=== PATIENT | female | born 1975 | race African-American/Black ===

== ENCOUNTER 2016-10-13 08:34 | Emergency (ER) | payer OTHER ==
[~2016-10-13] VITALS: Ht 170.2 cm; Wt 73.3 kg
[~2016-10-13 08:34] MED LIST: AMITRIPTYLINE H50 MG PO; AMPHETAMINE SAL30 MG PO; CLONAZEPAM1 MG PO; METFORMIN HCL500 MG PO; MILK OF MAGN PO; QUETIAPINE FUM200 MG PO; SEROQUEL200 MG PO
[2016-10-13] MEDS ORDERED: MUCUS ER600 MG PO (10:11)
[2016-10-13] MEDS ORDERED: NAPROSYN500 MG PO (10:11)
[2016-10-13] MEDS ORDERED: AUGMENTIN875 MG PO (10:11)
[2016-10-13] MEDS ORDERED: PROVENTIL HFA6.7 GM IH (10:11)
[2016-10-13] MEDS ORDERED: ROBITUSSIN NIG118 ML PO (10:11)
[2016-10-13] MEDS ORDERED: TESSALON PERLE100 MG PO (10:11)
[2016-10-13 10:48] VITALS: BP 139/83
== END 2016-10-13 10:48 | disposition home or self-care (01) ==
LOC: EME 08:34
DX: H66.92 Otitis media, unspecified, left ear (principal); J20.8 Acute bronchitis due to other specified organisms; M79.1 Myalgia; J34.89 Other specified disorders of nose and nasal sinuses; R21 Rash and other nonspecific skin eruption; F17.200 Nicotine dependence, unspecified, uncomplicated; Z71.6 Tobacco abuse counseling
CPT/HCPCS: 71020; 94640; 99281; 99283

== ENCOUNTER 2017-02-23 15:10 | Emergency (ER) | payer OTHER ==
[~2017-02-23] VITALS: Ht 170.2 cm; Wt 72.1 kg
[~2017-02-23 15:10] MED LIST changes: +AUGMENTIN875 MG PO; +MUCUS ER600 MG PO; +NAPROSYN500 MG PO; +PROVENTIL HFA6.7 GM IH; +ROBITUSSIN NIG118 ML PO; +TESSALON PERLE100 MG PO
[2017-02-23] MEDS ORDERED: ULTRAM50 MG PO (17:24)
[2017-02-23] MEDS ORDERED: SKELAXIN800 MG PO (17:24)
[2017-02-23 17:48] VITALS: BP 138/85
== END 2017-02-23 17:54 | disposition home or self-care (01) ==
LOC: EME 15:10
DX: M54.42 Lumbago with sciatica, left side (principal); V49.50XA Passenger injured in collision with unspecified motor vehicles in traffic accident, initial encounter
CPT/HCPCS: 72070; 72100; 99281; 99283

== ENCOUNTER 2017-05-19 12:35 | Inpatient (IN) | payer OTHER ==
[~2017-05-19] VITALS: Ht 170.2 cm; Wt 70.0 kg
[~2017-05-19 12:35] MED LIST changes: +SKELAXIN800 MG PO; +ULTRAM50 MG PO
[2017-05-19] MEDS ORDERED: EFFEXOR XR75 MG PO (12:48)
[2017-05-19] MEDS ORDERED: TRAZODONE HCL100 MG PO (12:48)
[2017-05-19 12:55] LABS: HEMATOCRIT 43.4 % (36.0-46.0); MCHC 32.7 G/DL (30.0-36.0); MCV 79.3 FL (83-99); MEAN PLAT.VOLUME 8.8 uM^3 (9.5-12.4); PLATELET COUNT 355 K/uL (156-360); RBC DIS.WIDTH-CV 14.5 % (11.8-14.6); RBC DIS.WIDTH-SD 41.5 % (39-53); RED BLOOD COUNT 5.47 M/uL (3.80-5.20); WHITE BLOOD COUNT 8.9 K/uL (4.1-10.2)
[2017-05-19 13:07] LABS: CHLORIDE 104 mEq/L (99-109); POTASSIUM 3.3 mEq/L (3.7-5.4); SODIUM 141 mEq/L (136-147)
[2017-05-19 13:09] LABS: GLUCOSE 124 mg/dL (70-99)
[2017-05-19 13:10] LABS: ANION GAP 13 MEQ/L (2-14)
[2017-05-19 13:11] LABS: TOTAL BILIRUBIN 1.6 mg/dL (0.0-1.0)
[2017-05-19 13:12] LABS: SERUM ETHYL ALCOHOL < 10 mg/dL
[2017-05-19 13:13] LABS: ALKALINE PHOSPHATASE 62 IU/L (3-129); GFR ESTIMATE (CALCULATED) > 59 mL/min/
[2017-05-19 13:14] LABS: UREA NITROGEN (BUN) 8 mg/dL (9-23)
[2017-05-19 13:22] LABS: QUANTITATIVE HCG < 4.0 MIU/ML
[2017-05-19 14:28] LABS: ADD MIUA? YES; BILIRUBIN NEGATIVE; BLOOD NEGATIVE; COLOR YELLOW ((YELLOW)); GLUCOSE (STRIP) NEGATIVE; KETONES NEGATIVE; LEUKOCYTES SMALL; NITRITE NEGATIVE; PROTEIN (STRIP) NEGATIVE; SPECIFIC GRAVITY 1.003 (1.000-1.030); UROBILINOGEN 0.2 MG/DL (0.2-1.0)
[2017-05-19 14:40] LABS: AMPHETAMINE PRESUMPTIVE POSITIVE (500 ng/mL); COCAINE PRESUMPTIVE POSITIVE (150 ng/mL); METHAMPHETAMINE NEGATIVE (500 ng/mL); OPIATES (MORPHINE) NEGATIVE (100 ng/mL); PHENCYCLIDINE NEGATIVE (25 ng/mL); THC CANNABINOIDS PRESUMPTIVE POSITIVE (50 ng/mL)
[2017-05-19 14:41] LABS: ADD MEDTOX COMMENT Y; BARBITURATES NEGATIVE (200 ng/mL); BENZODIAZEPINES NEGATIVE (150 ng/mL); INTERNAL CONTROLS VALID? YES; METHADONE NEGATIVE (200 ng/mL); OXYCODONE NEGATIVE (100 ng/mL); PROPOXYPHENE NEGATIVE (300 ng/mL); TRICYCLIC ANTIDEPRESSANTS NEGATIVE (300 ng/mL)
[2017-05-19 14:43] LABS: BACTERIA NONE SEEN /HPF; EPITHELIAL CELLS RARE /HPF; MUCUS TRACE /LPF; RED BLOOD CELLS 0-5 /HPF (0-5); WHITE BLOOD CELLS 0-5 /HPF (0-5)
[2017-05-19 19:17] VITALS: BP 132/83
[2017-05-19 19:19] VITALS: BP 132/83
[2017-05-19] MEDS ORDERED: ULTRAM50 MG PO (19:58)
[2017-05-20 08:01] VITALS: BP 111/63
[2017-05-20 15:44] VITALS: BP 98/60
[2017-05-21 07:20] VITALS: BP 131/60
[2017-05-21 15:32] VITALS: BP 86/49
[2017-05-22 07:27] VITALS: BP 94/53
[2017-05-22] MEDS ORDERED: CLONAZEPAM1 MG PO (08:44)
== END 2017-05-22 10:10 | disposition home or self-care (01) | DRG 897 ==
LOC: EME 12:35 → EDOF 17:19 → 1WEST 17:19 → ENRESERV 19:13 → 1WEST 05-22 10:10
PROVIDERS: Emergency Medicine
DX: F14.14 Cocaine abuse with cocaine-induced mood disorder (principal); F31.9 Bipolar disorder, unspecified; F20.9 Schizophrenia, unspecified; F43.10 Post-traumatic stress disorder, unspecified; F90.9 Attention-deficit hyperactivity disorder, unspecified type; M19.90 Unspecified osteoarthritis, unspecified site; R53.83 Other fatigue; F17.200 Nicotine dependence, unspecified, uncomplicated
CPT/HCPCS: 80053; 81003; 84702; 84999; 85027; 90837; 97166 GO; 99281; 99284; G0480